=== PATIENT | female | born 1945 | race Hispanic/Latino ===

== ENCOUNTER 2016-10-12 11:41 | Inpatient (IN) | payer MEDICARE, OTHER ==
[2016-09-29 11:05] VITALS: BMI 27.4
[2016-10-12 12:06] LABS: ADD MANUAL DIFF? NO
[2016-10-12 12:17] LABS: BASO # 0.01 K/mm3 (0.0-2.0); BASO % 0.3 % (0.0-3.0); EOS % 0.9 % (1.5-5.0); GRAN # 1.81 (1.4-6.5); GRAN % 56.1 % (50.0-68.0); LYMPH # 1.2 (1.2-3.4); LYMPH % 35.9 % (22.0-35.0); MEAN CELL VOLUME 88.2 fL (80.0-105.0); MEAN CORPUSCULAR HEMOGLOBIN 29.6 pg (25.0-35.0); MEAN CORPUSCULAR HGB CONC 33.6 g/dl (31.0-37.0); MONO # 0.2 (0.1-0.6); MONO % 6.8 % (1.0-6.0); PLATELET COUNT 141 10^3/uL (120.0-450.0); RED CELL DISTRIBUTION WIDTH 13.8 % (11.5-14.5); WHITE BLOOD COUNT 3.2 10^3/ul (4.5-11.0)
[2016-10-12 12:21] LABS: INR 0.98 (0.93-1.08); PARTIAL THROMBOPLASTIN TIME 25.5 Seconds (23.7-30.8)
[2016-10-12 12:28] LABS: BLOOD UREA NITROGEN 17 mg/dL (7-21); CALCIUM 9.5 mg/dL (8.4-10.5); CARBON DIOXIDE 30 mmol/L (21-33); CHLORIDE 103 mmol/L (95-110); GFR AFRICAN-AMERICAN > 60; GLUCOSE,RANDOM 150 mg/dL (70-110); POTASSIUM 4.3 mmol/L (3.6-5.0); SODIUM 142 mmol/L (132-148)
--- NOTE | 2016-10-12 12:33 | CP.SDSHP ---
Same Day Surgery H & P - History Proposed Procedure: ct guided left lung Bx. Pre-Op Diagnosis: pulmonary nodule left lung / rt upper lobe lobectomy / cancer. - Previous Medical/Surgical History Cardiac: Hypertension, Valvular Heart Disease Pulmonary: Bronchitis, Emphysema/COPD, Smoking Endocrine/Metabolic: Thyroid Disease, Diabetes Neuro: Backaches - Allergies Allergies: Allergies codeine Allergy (Intermediate, Verified 05/19/16 13:23) HYPERACTIVITY.AGITATION ANTIHISTAMINES Allergy (Intermediate, Uncoded 05/19/16 13:23) HYPERACTIVITY/AGITATION - Physical Exam General Appearance: WNL. Vital Signs: Vital Signs 10/12/16 12:00 Temperature 98.1 F Pulse Rate 85 Respiratory 18 Rate Blood Pressure 143/73 O2 Sat by Pulse 95 Oximetry Mental Status: Alert & Oriented x3 Neuro: WNL Heart: WNL Lungs: WNL - {Optional Preform as Required} Other Pertinent Findings: hyperlipidemia depression. - Impression Impression: LEFT LUNG NODULE. - Date & Time Date: 10/12/16 Time: 12:33 Short Stay Discharge - Short Stay Discharge Admitting Diagnosis/Reason for Visit: LUNG NODULE R91.1 Disposition: HOME/ ROUTINE Referrals: Grazyna Tyson MD [Primary Care Provider] -
[2016-10-12] MEDS ORDERED: Midazolam 2 MG/2 ML VIAL ONE (14:33)
[2016-10-12] MEDS ORDERED: Morphine 2 mg/ml ISec ONE (16:01)
[2016-10-12] MEDS ORDERED: Morphine 2 mg/ml ISec IVP ONE (16:03)
[2016-10-12] MEDS ORDERED: Morphine 4 mg/ml ISec IVP STA (16:05)
--- NOTE | 2016-10-12 17:09 | RAD ---
HISTORY: POST LUNG BIOPSY COMPARISON: Chest x-ray performed 02/02/16 TECHNIQUE: Chest, one view. FINDINGS: LUNGS: Left upper lobe masslike density Please note that chest x-ray has limited sensitivity for the detection of pulmonary masses. PLEURA: No significant pleural effusion identified. No definite pneumothorax . Small left upper 8th apical pneumothorax measures approximately 2.0 cm. CARDIOVASCULAR: Heart size appears within normal limits. OSSEOUS STRUCTURES: No acute osseous abnormality identified. VISUALIZED UPPER ABDOMEN: Elevation of the right hemidiaphragm. OTHER FINDINGS: None. IMPRESSION: Small left apical pneumothorax measures approximately 2 cm from pleural edge. Left upper lobe masslike density. Findings discussed with SHON Pearce on 10/12/16 at 5:06 p.m.
[2016-10-12] MEDS: Oxycodone/Acetaminophen 5/325 mg Tab PO PRN ×2 (19:19→19:48)
[2016-10-12] MEDS: Sodium Chloride 0.45% 1,000 ML IV SCH (21:42)
[2016-10-13] MEDS: Oxycodone/Acetaminophen 5/325 mg Tab PO PRN (00:54)
--- NOTE | 2016-10-13 10:06 | RAD ---
HISTORY: lt PTX COMPARISON: No prior. FINDINGS: LUNGS: No active pulmonary disease. PLEURA: There is a moderate to large left pneumothorax. The edge of the lung is 2 point 8 cm from the chest wall. There is no mediastinal shift. Dr. Alcala's office was notified at 9:30 a.m. CARDIOVASCULAR: Normal. OSSEOUS STRUCTURES: No significant abnormalities. VISUALIZED UPPER ABDOMEN: Normal. OTHER FINDINGS: None. IMPRESSION: Left-sided pneumothorax with no mediastinal shift
[2016-10-13] MEDS ORDERED: Midazolam 2 MG/2 ML VIAL ONE (14:40)
[2016-10-13] MEDS ORDERED: Morphine 2 mg/ml ISec IVP PRN (15:51)
--- NOTE | 2016-10-13 16:44 | CT ---
PROCEDURE: CT-guided left chest tube placement HISTORY: Recent left apical CT-guided lung biopsy. Enlarging left pneumothorax. Needs chest tube. PHYSICIAN(S): Jose Alberto Alcala MD. TECHNIQUE: The relative risks and indications for the procedure were explained to the patient and informed consent obtained. The patient was placed in a supine position on the CT scanner and preliminary images through the lung apices performed. This revealed a moderate to large left pneumothorax. No shift in the mediastinum was appreciated.. A left anterior approach was selected in the area prepped and draped usual sterile fashion. Conscious sedation monitoring were provided throughout the procedure by a nurse. The skin and soft tissues were anesthetized 1 percent xylocaine. 19 gauge needle was advanced into the left pleural space from an anterior approach. Air was aspirated a 0.035 guidewire coiled left pleural space. Sequential dilatation was performed with subsequent placement of a 12 [place] left pigtail chest tube. The tube was retracted anteriorly secured. The tube was placed to 20 cm H2O low continuous suction. The patient tolerated the procedure well. IMPRESSION: 1. CT-guided left chest tube placement as described above.
[2016-10-13] MEDS: Morphine 4 mg/ml ISec IVP PRN (23:57)
[2016-10-14] MEDS: Morphine 4 mg/ml ISec IVP PRN ×2 (04:09→10:11)
[2016-10-14] MEDS: Sodium Chloride 0.45% 1,000 ML IV SCH (05:34)
[2016-10-14 08:49] VITALS: BP 150/80; PULSE 67; RESP 19; TEMP 97.8; O2SAT 94
--- NOTE | 2016-10-14 10:57 | RAD ---
HISTORY: lt chest tube COMPARISON: 10/13/2016 FINDINGS: LUNGS: No active pulmonary disease. PLEURA: There is now a small caliber pigtail chest tube in the left lung apex with re-expansion of the lung. No residual pneumothorax is seen CARDIOVASCULAR: Normal. OSSEOUS STRUCTURES: No significant abnormalities. VISUALIZED UPPER ABDOMEN: Normal. OTHER FINDINGS: None. IMPRESSION: There is now a small caliber pigtail chest tube in the left lung apex with re-expansion of the lung. No residual pneumothorax is seen
--- NOTE | 2016-10-14 13:31 | HP ---
CHIEF COMPLAINT AND HISTORY OF PRESENT ILLNESS: This is a 71-year-old female who is coming in for el ective biopsy of a lung nodule by Jose Alberto Alcala. The patient had a successful lung biopsy. The patien t had a left upper lobe mass. After the biopsy, chest x-ray showed pneumothorax. The patient had a chest tube that was inserted. The patient is currently comfortable. She was having pain issues. I have increased her morphine ove rnight. She said she was much more comfortable with her pain management. The patient's chest x-ray looks like it has reexpanded by a repeat chest x-ray that was done this morning. I did speak to Dr. Jose Alberto Alcala that was on the case, and if the patient gets her chest tube taken out, she should be abl e to go home if cleared by him. She has no complaints of any headaches, no dizziness, no nausea, no vomiting. ALLERGIES: ANTIHISTAMINE. PAST MEDICAL HISTORY: Sciatica. SOCIAL HISTORY: She smoked 1 pack per day for 50 years, but quit in 04/2016. FAMILY HISTORY: Noncontributory. PHYSICAL EXAMINATION: VITAL SIGNS: Temperature is 97.8. Pulse is 67. Blood pressure is ____, respirations 19, O2 saturat ion 94%. GENERAL: The patient is lying in bed, flat, and in no apparent distress. HEAD AND NECK EXAM: Atraumatic, normocephalic. Conjunctivae are pink. Throat clear and mouth with moist mucosa. Oropharynx benign. EYES: Extraocular movements are intact. PERRLA. NECK: Supple. No JVD, thyromegaly, or adenopathy. No bruits. HEART: S1 and S2 regular rate and rhythm. No murmurs, rubs, or gallops. LUNGS: Clear to auscultation bilaterally. No wheezing rales or rhonchi appreciated. No retraction s on exam. CHEST: In the left chest, there is a chest tube in place. Good air entry in left lung. ABDOMEN: Soft, nontender, nondistended. Bowel sounds are positive in all quadrants. No rebound. No hepatosplenomegaly. EXTREMITIES: No cyanosis, clubbing, or edema. NEURO: No facial asymmetry, tongue is midline, no uvula deviation. Power is 5/5 in upper extremity and 5/5 in lower extremity. Sensation is normal in upper extremity and lower extremity. PSYCH: Awake, alert, oriented x3. No anxiety or depression symptoms. Good insight. Normal affec t. : No CVA tenderness VASCULAR: 2+ pulses in carotid and pedal pulses. SKIN: No erythema or abnormal nodules noted. SPINE: Normal curvature. LYMPHADENOPATHY: No anterior cervical or posterior cervical adenopathy. No inguinal adenopathy. LABORATORY DATA: White count of 3.2. Creatinine is 0.9. INR is 0.98. ASSESSMENT: 1. Left-sided pneumothorax. 2. Left lung nodule status post CT-guided biopsy. 3. Dyslipidemia. 4. Hypertension. PLAN: The patient is currently comfortable. She had a chest tube in place. She is going to [facility] e on Lipitor. She is on Cozaar for her hypertension. She is on Tylenol as needed. She will follow up with her primary care doctor, ____. CONDITION: Stable. ACTIVITIES: Increase as tolerated. Soham Pantoja MD cc: [id number] TT: 10/14/2016 12:14:37 jn
--- NOTE | 2016-10-14 17:50 | CT ---
PROCEDURE: CT guided left apical lung biopsy. HISTORY: Recent right upper lobe lung CA resection. Left apical nodule -evaluate for malignancy. PHYSICIAN(S): Jose Alberto Alcala MD. TECHNIQUE: The relative risks and indications of the procedure were explained to the patient and consent obtained. The patient was placed prone on the CT scanner and preliminary images through the lung apices obtained. Conscious sedation and monitoring were provided throughout the procedure by a nurse. There is a 10 mm oblong nodule in the left apex anteriorly. A left posterior approach was selected and the area prepped and draped in the usual sterile fashion. 1% Xylocaine was used to anesthetize the skin and soft tissues. A 19 gauge guiding needle was advanced into the 10 mm left apical pulmonary nodule. Its position was confirmed with CT. Using coaxial technique, multiple core biopsies were obtained. The postprocedure images show no evidence of large pneumothorax and a small amount of associated hemorrhage. A follow-up chest x-ray has been ordered. IMPRESSION: 1. CT-guided left apical lung biopsy as described above.
--- NOTE | 2016-10-15 11:27 | RAD ---
HISTORY: lt chest tube COMPARISON: Earlier same day FINDINGS: LUNGS: No active pulmonary disease. PLEURA: Tiny left apical pneumothorax CARDIOVASCULAR: Normal. OSSEOUS STRUCTURES: No significant abnormalities. VISUALIZED UPPER ABDOMEN: Normal. OTHER FINDINGS: Left-sided pigtail catheter. IMPRESSION: Left-sided chest tube. Tiny left apical pneumothorax
--- NOTE | 2016-12-14 08:19 | DS ---
Please see the note on 10/14/2016, which is an H&P, as the patient was discharged. Soham Pantoja MD
== END 2016-10-14 17:23 | disposition home or self-care (01) | DRG 200 ==
LOC: SDS 11:41 → 3RSO 19:18 → SDS 10-13 14:50 → 3RSO 10-13 14:51
PROVIDERS: ADMIT Internal Medicine Nephrology; ATTEND Internal Medicine Nephrology
PROC: 0BBL3ZX Excision of Left Lung, Percutaneous Approach, Diagnostic (ICD-10-PCS; principal; 2016-10-12 14:00)
PROC: 0W9B30Z Drainage of Left Pleural Cavity with Drainage Device, Percutaneous Approach (ICD-10-PCS; 2016-10-13)
DX: J95.811 Postprocedural pneumothorax (principal); C34.12 Malignant neoplasm of upper lobe, left bronchus or lung; J44.9 Chronic obstructive pulmonary disease, unspecified; I10 Essential (primary) hypertension; E78.5 Hyperlipidemia, unspecified; M54.30 Sciatica, unspecified side; Y84.8 Other medical procedures as the cause of abnormal reaction of the patient, or of later complication, without mention of misadventure at the time of the procedure; Z85.118 Personal history of other malignant neoplasm of bronchus and lung; Z87.891 Personal history of nicotine dependence

== ENCOUNTER 2018-05-09 11:47 | Emergency (ER) | payer MEDICARE ==
[2018-05-09 11:54] VITALS: TEMP 98.1; BMI 28.1
[2018-05-09] MEDS ORDERED: Sodium Chloride 0.9% 1,000 ML IV SCH (12:15)
--- NOTE | 2018-05-09 12:19 | ED PDOC ---
Arrival/HPI - General Chief Complaint: Weakness/Neurological Deficit Time Seen by Provider: 05/09/18 11:52 Historian: Patient - History of Present Illness Narrative History of Present Illness (Text): 05/09/18 12:18 73 year old female, with past medical history of hypertension, diabetes, and lung CA s/p right upper lobectomy, presents to the ED from Dr. Tyson's office for a sudden episode of confusion 2 days ago. Patient reports talking on the phone 2 days ago when she suddenly felt "a door closed" in her head and misspoke for a few seconds. Patient soon returned to baseline and could not remember what she was talking about. Patient reported low blood pressure of 104 systolic at the the time, which progressively improved throughout the day. Patient informs visiting her PMD for the presented symptoms, who subsequently sent patient to the ED for medical evaluation. Patient currently denies any somatic complaints. Patient denies any fevers, chills, headache, dizziness, chest pain, shortness of breath, dyspnea on exertion, cough, abdominal pain, nausea, vomiting, diarrhea, back pain, neck pain, or any other complaints. PMD: Dr. Tyson Time/Duration: < week Symptom Onset: Gradual Symptom Course: Resolved Activities at Onset: Light Context: Home Past Medical History - Provider Review Nursing Documentation Reviewed: Yes - Infectious Disease Hx of Infectious Diseases: None - Reproductive Menopause: Yes - Cardiac Hx Hypertension: Yes - Pulmonary Hx Lung Cancer: Yes - Neurological Hx Paralysis: No - Endocrine/Metabolic Hx Diabetes Mellitus Type 2: Yes - Hematological/Oncological Hx Blood Transfusions: No Hx Blood Transfusion Reaction: No - Musculoskeletal/Rheumatological Hx Musculoskeletal Disorders: Yes (SCIATICA) - Psychiatric Hx Emotional Abuse: No Hx Physical Abuse: No Hx Substance Use: No - Anesthesia Hx Anesthesia Reactions: No Hx Malignant Hyperthermia: No - Suicidal Assessment Feels Threatened In Home Enviroment: No Family/Social History - Physician Review Nursing Documentation Reviewed: Yes Family/Social History: Unknown Family HX Smoking Status: Unknown If Ever Smoked Hx Alcohol Use: No Hx Substance Use: No Allergies/Home Meds Allergies/Adverse Reactions: Allergies ANTIHISTAMINES Allergy (Intermediate, Uncoded 05/09/18 12:16) HYPERACTIVITY/AGITATION Home Medications: Home Meds Medication Instructions Recorded Confirmed RX: Atorvastatin [Lipitor] 10 mg PO HS 01/23/16 10/12/16 RX: Sertraline [Zoloft] 100 mg PO QAM 01/23/16 10/12/16 RX: Valsartan [Diovan] 160 mg PO QAM 01/23/16 10/12/16 RX: diaZEpam [Valium] 5 mg PO HS 01/23/16 10/12/16 RX: oxyCODONE/Acetaminophen 0.5 tab PO PRN PRN 01/23/16 10/12/16 [Percocet 5/325 mg Tab] RX: Umeclidinium Brm/Vilanterol Tr 1 puff IH QAM 05/19/16 10/12/16 [Anoro Ellipta 62.5-25 Mcg INH] Review of Systems - Physician Review All systems were reviewed & negative as marked: Yes - Review of Systems Constitutional: absent: Fevers Eyes: absent: Vision Changes Respiratory: absent: SOB, Cough Cardiovascular: absent: Chest Pain Gastrointestinal: absent: Abdominal Pain, Diarrhea, Nausea, Vomiting Genitourinary Female: absent: Dysuria, Urine Output Changes Musculoskeletal: absent: Back Pain, Neck Pain Skin: absent: Rash Neurological: absent: Headache, Dizziness Endocrine: absent: Diaphoresis Physical Exam Vital Signs Reviewed: Yes Vital Signs Temp Pulse Resp BP Pulse Ox 05/09/18 11:53 98.1 F 78 18 135/82 98 Temperature: Afebrile Blood Pressure: Normal Pulse: Regular Respiratory Rate: Normal Appearance: Positive for: Well-Appearing, Non-Toxic, Comfortable Pain Distress: None Mental Status: Positive for: Alert and Oriented X 3 - Systems Exam Head: Present: Atraumatic, Normocephalic Pupils: Present: PERRL Extroacular Muscles: Present: EOMI Conjunctiva: Present: Normal Neck: Present: Normal Range of Motion. No: Meningeal Signs Respiratory/Chest: Present: Clear to Auscultation, Good Air Exchange. No: Re spiratory Distress, Accessory Muscle Use Cardiovascular: Present: Regular Rate and Rhythm, Normal S1, S2. No: Murmurs Abdomen: No: Tenderness, Distention, Peritoneal Signs Upper Extremity: Present: Normal Inspection. No: Cyanosis, Edema Lower Extremity: Present: Normal Inspection. No: Edema Neurological: Present: GCS=15, CN II-XII Intact, Speech Normal, Motor Func Grossly Intact, Normal Sensory Function Skin: Present: Warm, Dry, Normal Color. No: Rashes Psychiatric: Present: Alert, Oriented x 3, Normal Insight, Normal Concentration Medical Decision Making ED Course and Treatment: 05/09/18 12:13 Impression: 73 year old female presents to the Emergency department for evaluation of a sudden episode of confusion 2 days ago. ?syncope vs tia Plan: -- Labs -- CT of Head -- EKG -- Chest X-ray -- IV Fluids -- Reassess and disposition Prior Visits: Notes and results from previous visits were reviewed. Progress Notes: 05/09/18 12:13 EKG: Ordered, reviewed, and independently interpreted the EKG. Rate : 66 BPM Rhythm : NSR Interpretation : Non-specific ST/T wave changes. 05/09/18 13:27 CT of head reviewed by radiologist, shows: No acute intracranial findings. 05/09/18 19:[address] advised possibility of tia/cva. recommended admission. pt states needs to take care of disabled person cannot stay overnight. spoke extensively abolut risks. signs ama - Lab Interpretations Lab Results: Lab Results 05/09/18 11:59: POC Glucose (mg/dL) 133 H - RAD Interpretation Radiology Orders: 05/09/18 12:13 HEAD W/O CONTRAST [CT] Stat CHEST PORTABLE [RAD] Stat Nail Welter: Radiologist - Medication Orders Current Medication Orders: Sodium Chloride (Sodium Chloride 0.9%) 1,000 mls @ 100 mls/hr IV .Q10H [place] - Scribe Statement The provider has reviewed the documentation as recorded by the Scribe Dayton Evans. All medical record entries made by the Scribe were at my direction and personally dictated by me. I have reviewed the chart and agree that the record accurately reflects my personal performance of the history, physical exam, medical decision making, and the department course for this patient. I have also personally directed, reviewed, and agree with the discharge instructions and disposition. Disposition/Present on Arrival - Present on Arrival Any Indicators Present on Arrival: No History of DVT/PE: No History of Uncontrolled Diabetes: No Urinary Catheter: No History of Decub. Ulcer: No History Surgical Site Infection Following: None - Disposition Have Diagnosis and Disposition been Completed?: Yes Diagnosis: Syncope, Left against medical advice Disposition: HOME/ ROUTINE Disposition Time: 13:55 Condition: FAIR Discharge Instructions (ExitCare): Transient Ischemic Attack, Syncope (Fainting) (DC), Leaving Against Medical Advice, Syncope (ED) Additional Instructions: return to er with worsening symptoms or cocnerns. please see specialsit. Referrals: Grazyna Tyson MD [Primary Care Provider] - Follow up with primary Garry Alexandra MD [Staff Provider] - Follow up with primary Forms: [employer] ([place]) Against Medical Advice - AMA Patient Left Against Medical Advice: The patient declines admission to the hospital and wishes to leave the Emergency Department. This action is against my medical advice. This decision was made with informed refusal. The patient was told that admission to the hospital is necessary. Explanation of the reasons why were discussed. The risks of leaving were explained to the patient and include, but are not limited to, worsening of known or currently unknown conditions, permanent disability and from undiagnosed or untreated conditions. The patient has the capacity to make this informed decision and understands my explanation of the current medical problem and risks of leaving. The patient voluntarily accepts these risks and signed an AMA form documenting our conversation. The patient was given the opportunity to ask questions and reconsider. The patient was encouraged to return to the Emergency Department at any time for further care.
[2018-05-09 13:09] LABS: EOS % 0.6 % (1.5-5.0); GRAN # 1.88 (1.4-6.5); HEMOGLOBIN 11.9 g/dL (12.0-16.0); LYMPH % 31.8 % (22.0-35.0); MEAN CELL VOLUME 88.3 fl (80.0-105.0); MEAN CORPUSCULAR HEMOGLOBIN 29.1 pg (25.0-35.0); MEAN PLATELET VOLUME 9.7 fl (7.0-11.0); MONO # 0.2 (0.1-0.6); MONO % 7.6 % (1.0-6.0); RBC 4.09 10^6/uL (3.5-6.1); RED CELL DISTRIBUTION WIDTH 13.2 % (11.5-14.5); WHITE BLOOD COUNT 3.1 10^3/uL (4.5-11.0)
[2018-05-09 13:17] LABS: INR 0.97; PARTIAL THROMBOPLASTIN TIME 28.5 Seconds (25.1-36.5); PROTHROMBIN TIME 11.1 SECONDS (9.4-12.5)
--- NOTE | 2018-05-09 13:17 | CT ---
Date of service: 05/09/2018 PROCEDURE: CT HEAD WITHOUT CONTRAST. HISTORY: syncope COMPARISON: None available. TECHNIQUE: Axial computed tomography images were obtained through the head/brain without intravenous contrast. Radiation dose: Total exam DLP = 854.49 mGy-cm. This CT exam was performed using one or more of the following dose reduction techniques: Automated exposure control, adjustment of the mA and/or kV according to patient size, and/or use of iterative reconstruction technique. FINDINGS: HEMORRHAGE: No intracranial hemorrhage. BRAIN: No mass effect or edema. No atrophy or chronic microvascular ischemic changes. VENTRICLES: Unremarkable. No hydrocephalus. CALVARIUM: Unremarkable. PARANASAL SINUSES: Unremarkable as visualized. No significant inflammatory changes. MASTOID AIR CELLS: Unremarkable as visualized. No inflammatory changes. OTHER FINDINGS: None. IMPRESSION: No acute intracranial findings
[2018-05-09 13:21] LABS: ALB/GLOB RATIO 1.4 (1.1-1.8); ALBUMIN 4.4 g/dL (3.0-4.8); ALT/SGPT 28 U/L (7-56); AST/SGOT 33 U/L (14-36); BLOOD UREA NITROGEN 16 mg/dL (7-21); CALCIUM 9.5 mg/dL (8.4-10.5); GFR NON-AFRICAN AMERICAN 54; HDL CHOLESTEROL 43 mg/dL (29-60)
[2018-05-09 13:31] LABS: LDL CHOLESTEROL 156 mg/dL (0-129)
[2018-05-09 13:34] LABS: TROPONIN I < 0.01 ng/mL
[2018-05-09 13:57] VITALS: BP 139/66; PULSE 66; RESP 16; O2SAT 96
--- NOTE | 2018-05-09 15:34 | RAD ---
Date of service: 05/09/2018 HISTORY: Code Stroke COMPARISON: Portable chest 10/14/2016. FINDINGS: LUNGS: Prior left pleural drainage catheter has been removed. Surgical clips are seen in the left chest wall or apex in the interval. No acute airspace disease bilaterally. PLEURA: No significant pleural effusion identified, no pneumothorax apparent. CARDIOVASCULAR: No aortic atherosclerotic calcification present. Normal cardiac size. No pulmonary vascular congestion. OSSEOUS STRUCTURES: No significant abnormalities. VISUALIZED UPPER ABDOMEN: Right hemidiaphragm elevation unchanged. OTHER FINDINGS: None. IMPRESSION: No acute cardiopulmonary disease appreciable. Prior left pleural drainage catheter has been removed.
--- NOTE | 2018-05-10 07:58 | CARD ---
APPROVED REPORT Date of service: 05/09/2018 EKG Measurement Heart [id number] <Conclusion> Normal sinus rhythm Possible Left atrial enlargement RVCD ST & T wave abnormality c/w ischemia
== END 2018-05-09 13:55 | disposition home or self-care (01) ==
LOC: ED 11:47
DX: R55 Syncope and collapse (principal); E11.9 Type 2 diabetes mellitus without complications; I10 Essential (primary) hypertension; Z85.118 Personal history of other malignant neoplasm of bronchus and lung